=== PATIENT | male | born 1985 | race Caucasian/White ===

== ENCOUNTER 2018-01-30 20:17 | Inpatient (IN) | payer SELFPAY ==
[~2018-01-30] VITALS: Ht 167.6 cm; Wt 62.8 kg
[2018-01-30] MEDS ORDERED: SODIUM CHLORIDE 0.9% 1000ML 1,000 ML ONE (20:25)
[2018-01-30] MEDS ORDERED: ETOMIDATE 2 MG/ML 10 ML INJ IV ONE ×2 (20:31→21:15)
[2018-01-30] MEDS ORDERED: VECURONIUM BROMIDE FOR INJ 20 MG VIAL ONE (20:32)
[2018-01-30] MEDS ORDERED: SUCCINYLCHOLINE CHLORIDE 20 MG/ML 10ML VIAL ONE (20:32)
[2018-01-30] MEDS ORDERED: VECURONIUM BROMIDE FOR INJ 20 MG VIAL IV STA (20:44)
[2018-01-30] MEDS ORDERED: SODIUM CHLORIDE 0.9% 1000ML 1,000 ML IV STA (20:44)
[2018-01-30] MEDS ORDERED: SUCCINYLCHOLINE 200 MG/10 ML SYR IV STA (20:44)
[2018-01-30 21:03] LABS: BASOPHILS % 0.6 % (0.0-1.0); EOSINOPHILS # (AUTO) 0.1 (0.0-0.4); EOSINOPHILS % 1.5 % (0.0-6.0); HEMATOCRIT 42.3 % (38.2-49.6); HEMOGLOBIN 14.9 g/dL (14.0-18.0); LYMPHOCYTES # (AUTO) 2.3 (1.0-3.2); LYMPHOCYTES % 31.7 % (18.0-39.1); MEAN CORPUSCULAR HEMOGLOBIN 29.9 pg (28-32); MEAN CORPUSCULAR HGB CONC 35.2 g/dL (31-35); MEAN CORPUSCULAR VOLUME 84.9 fL (81-99); MONOCYTES # (AUTO) 0.6 (0.2-0.8); MONOCYTES % 8.1 % (4.4-11.3); NEUTROPHILS # (AUTO) 4.1 (2.1-6.9); NEUTROPHILS % 57.3 % (38.7-80.0); PLATELET COUNT 191 x10e3/uL (140-360); RED BLOOD COUNT 4.98 x10e6/uL (4.3-5.7)
[2018-01-30 21:13] LABS: INR 1.03; PROTHROMBIN TIME 12.7 seconds (11.9-14.5)
[2018-01-30 21:14] LABS: PARTIAL THROMBOPLASTIN TIME 25.2 seconds (23.8-35.5)
[2018-01-30] MEDS ORDERED: CHARCOAL/SORBITOL LIQD 25 GM/120 ML TUBE NG STA (21:17)
[2018-01-30 21:20] LABS: CLARITY,URINE CLEAR (CLEAR); COLOR,URINE YELLOW (YELLOW)
[2018-01-30 21:21] LABS: AMPHETAMINES SCREEN,URINE NEGATIVE (NEGATIVE); BENZODIAZEPINES SCREEN,URINE POSITIVE (NEGATIVE); BILIRUBIN,URINE NEGATIVE (NEGATIVE); KETONES,URINE NEGATIVE (NEGATIVE); LEUKOCYTE ESTERASE ,URINE NEGATIVE (NEGATIVE); NITRITE,URINE NEGATIVE (NEGATIVE); PHENCYCLIDINE SCREEN,URINE NEGATIVE (NEGATIVE); PROTEIN,URINE DIPSTICK NEGATIVE (NEGATIVE); URINE UROBILINOGEN 0.2 mg/dL (0.2 - 1)
[2018-01-30 21:22] LABS: ACETAMINOPHEN 108 ug/mL (10-30); AMYLASE 47 U/L (25-125); LIPASE 28 U/L (8-78); SALICYLATE < 5.0 mg/dL (0-30)
[2018-01-30 21:24] LABS: ALANINE AMINOTRANSFERASE 8 IU/L (0-55); ALBUMIN 4.1 g/dL (3.5-5.0); ALBUMIN/GLOBULIN RATIO 1.3 (0.8-2.0); ALKALINE PHOSPHATASE 51 IU/L (40-150); ANION GAP 20.4 mmol/L (8-16); BLOOD UREA NITROGEN 12 mg/dL (7-26); BUN/CREATININE RATIO 12 (6-25); CARBON DIOXIDE 24 mmol/L (22-29); CHLORIDE 108 mmol/L (98-107); CREATINE KINASE 43 IU/L (30-200); CREATININE, SERUM 0.99 mg/dL (0.72-1.25); EST GLOMERULAR FILTRATION RATE > 60 ML/MIN (60-); GLUCOSE 103 mg/dL (74-118); POTASSIUM 4.4 mmol/L (3.5-5.1); SODIUM 148 mmol/L (136-145)
[2018-01-30 21:28] LABS: RBC,URINE 0-5 /HPF (0-5); WBC,URINE (MAN) 0-5 /HPF (0-5)
[2018-01-30 21:29] LABS: MUCUS,URINE MODERATE (RARE)
--- NOTE | 2018-01-30 21:37 | Diagnostic Imaging Report ---
CHEST SINGLE (PORTABLE), 01/30/2018 8:57 PM Technique: CHEST SINGLE (PORTABLE) Comparison: None available. Clinical history: Altered mental status, intubated Findings: Mild cardiac opacity. Otherwise unremarkable appearance of the heart, mediastinum, lungs and pleural spaces. Impression: 1. Lines/tubes: ET tube 5.2 cm above the erasto. 2. Mild left basilar opacity, likely atelectasis. If there is concern for aspiration, consider follow-up upright PA and lateral. Signed by: Dr Soni Mcnamara MD on 01/30/2018 9:34 PM
--- NOTE | 2018-01-30 21:44 | Diagnostic Imaging Report ---
Exams: Head and cervical spine CTs without IV contrast History: Altered mental status Comparison studies: None Technique: Axial images were obtained from the brain and cervical spine. Coronal and sagittal images reconstructed from the axial data. Intravenous contrast: None Findings: Head CT: Scalp: No abnormalities. Bones: No fractures, blastic or lytic lesions. Extra-axial spaces: No masses. No fluid collections. Brain sulci: Appropriate for age. Ventricles: Normal in size and configuration. No hydrocephalus. Parenchyma: No abnormal densities. No masses, hemorrhage, acute or chronic vascular insults. Sellar/suprasellar region: No abnormalities. Craniocervical junction: The foramen magnum is patent. No Chiari one malformation. Cervical spine CT: Fractures: None. Soft tissues: No gross acute abnormalities. Atlantoaxial articulation: Intact. Alignment: Normal lordosis. No subluxations. Cervicomedullary junction: No abnormalities. The foramen magnum is patent. Vertebrae: No infection or neoplasm. Degenerative changes: Mildly degenerated C6-C7 disc with small disc bulge which indents the thecal sac but does not result in significant canal stenosis. Incidental findings: Small bilateral maxillary sinus alveolar recess retention cysts. Partially imaged ET tube (distal tubes lies outside imaged of view on this exam). Opacified nasopharynx by nonspecific secretions, likely related to intubation. IMPRESSION: Head CT: No intracranial abnormalities. Cervical spine CT: 1. No cervical spine fracture or subluxation. 2. Partially imaged ET tube. 3. Please note, cannot adequately evaluate ligament, spinal cord and or vascular abnormalities on the basis of this examination. Signed by: Dr. Keny Ward M.D. on 01/30/2018 9:41 PM
[2018-01-30] MEDS ORDERED: ACETYLCYSTEINE 200 MG/1 ML 10ML VIAL NG STA (22:15)
[2018-01-30 22:32] LABS: ABG PCO2 45 mmHg (41-51); ABG PH 7.34 (7.31-7.41); ABG PO2 494 mmHg (80-105)
[2018-01-30 22:33] LABS: ABG HCO3 24 mmol/L (23-28)
[2018-01-30] MEDS: SODIUM CHLORIDE 0.9% 1000ML 1,000 ML IV SCH (22:44)
[2018-01-30] MEDS ORDERED: MORPHINE SULFATE 2 MG/ML SYR IV PRN (23:00)
[2018-01-30] MEDS ORDERED: MULTIVITAMINS- 12 INJECTION 10 ML, FOLIC ACID MDV 5 MG, THIAMINE HCL INJ 100 MG in SODI... IV ONE (23:00)
[2018-01-30] MEDS ORDERED: ONDANSETRON HCL INJ 2 MG/ML VIAL IV PRN (23:00)
[2018-01-30 23:36] VITALS: BP 132/79
[2018-01-30 23:45] VITALS: BP 170/146
[2018-01-30] MEDS ORDERED: ACETYLCYSTEINE 200 MG/ML 4ML VIAL ONE ×2 (23:47→23:55)
[2018-01-30 23:55] VITALS: BP 170/146
[2018-01-30 23:58] LABS: CREATINE KINASE MB 0.3 ng/mL (0-5.0)
[2018-01-31] VITALS (54 sets, daily range): BP systolic 100–134; BP diastolic 62–91
[2018-01-31] MEDS ORDERED: VANCOMYCIN 1GM/NS 250 ML 250 ML IV STA (00:15)
[2018-01-31] MEDS ORDERED: CEFEPIME HCL 2 GM VIAL IV STA (00:15)
[2018-01-31] MEDS ORDERED: PROPOFOL IV EMULSION 10MG/ML 100 ML ONE (00:26)
[2018-01-31] MEDS ORDERED: PROPOFOL IV EMULSION 10MG/ML 100 ML IV PRN (00:45)
[2018-01-31] MEDS ORDERED: ACETYLCYSTEINE 200 MG/1 ML 10ML VIAL NG SCH (02:00)
[2018-01-31] MEDS ORDERED: ACETYLCYSTEINE 200 MG/ML 4ML VIAL ONE (02:03)
[2018-01-31] MEDS ORDERED: LORAZEPAM INJ 2 MG/ML VIAL IV PRN (04:15)
[2018-01-31 04:48] LABS: BASOPHILS % 0.3 % (0.0-1.0); EOSINOPHILS % 0.2 % (0.0-6.0); HEMOGLOBIN 12.6 g/dL (14.0-18.0); LYMPHOCYTES # (AUTO) 0.7 (1.0-3.2); LYMPHOCYTES % 11.3 % (18.0-39.1); MEAN CORPUSCULAR HEMOGLOBIN 29.6 pg (28-32); MEAN CORPUSCULAR HGB CONC 34.1 g/dL (31-35); MEAN CORPUSCULAR VOLUME 86.9 fL (81-99); MONOCYTES # (AUTO) 0.6 (0.2-0.8); MONOCYTES % 8.9 % (4.4-11.3); NEUTROPHILS # (AUTO) 4.9 (2.1-6.9); NEUTROPHILS % 78.7 % (38.7-80.0); PLATELET COUNT 135 x10e3/uL (140-360); RED BLOOD COUNT 4.26 x10e6/uL (4.3-5.7); RED CELL DISTRIBUTION WIDTH 13.2 % (11.7-14.4)
[2018-01-31] MEDS: SODIUM CHLORIDE 0.9% 1000ML 1,000 ML IV SCH ×3 (04:55→18:54)
[2018-01-31 05:08] LABS: INR 1.3; PROTHROMBIN TIME 15.2 seconds (11.9-14.5)
[2018-01-31 05:09] LABS: PARTIAL THROMBOPLASTIN TIME 24.8 seconds (23.8-35.5)
[2018-01-31 05:20] LABS: CREATINE KINASE MB 0.7 ng/mL (0-5.0)
[2018-01-31 05:46] LABS: ALANINE AMINOTRANSFERASE 8 IU/L (0-55); ALBUMIN 3.8 g/dL (3.5-5.0); ALBUMIN/GLOBULIN RATIO 1.6 (0.8-2.0); ALKALINE PHOSPHATASE 45 IU/L (40-150); ANION GAP 18.1 mmol/L (8-16); BLOOD UREA NITROGEN 10 mg/dL (7-26); BUN/CREATININE RATIO 13 (6-25); CARBON DIOXIDE 16 mmol/L (22-29); CHLORIDE 111 mmol/L (98-107); CREATININE, SERUM 0.79 mg/dL (0.72-1.25); EST GLOMERULAR FILTRATION RATE > 60 ML/MIN (60-); GLUCOSE 204 mg/dL (74-118); MAGNESIUM 1.7 MG/DL (1.3-2.1); SODIUM 142 mmol/L (136-145)
[2018-01-31 05:47] LABS: POTASSIUM 3.1 mmol/L (3.5-5.1)
[2018-01-31 05:48] LABS: CALCIUM 7.6 mg/dL (8.4-10.2)
--- NOTE | 2018-01-31 17:31 | Diagnostic Imaging Report ---
PROCEDURE: Frontal and lateral views of the chest. COMPARISON: Chest radiograph 01/30/2018 INDICATIONS: OVERDOSE, PNEUMONIA FINDINGS: Lines/tubes: Interval removal of endotracheal tube. Lungs: The lungs are well inflated and clear. There is no evidence of pneumonia or pulmonary edema. Pleura: There is no pleural effusion or pneumothorax. Heart and mediastinum: The heart and the mediastinum are normal. Bones: No acute bony abnormality. IMPRESSION: 1. No acute cardiopulmonary disease. 2. Interval removal of endotracheal tube. Dictated by: Ankur Anderson M.D. on 01/31/2018 at 17:35 Electronically approved by: Ankur Anderson M.D. on 01/31/2018 at 17:35
[2018-01-31] MEDS: IBUPROFEN 400 MG TAB PO PRN (22:25)
[2018-02-01] VITALS (24 sets, daily range): BP systolic 107–137; BP diastolic 72–98
[2018-02-01] MEDS: SODIUM CHLORIDE 0.9% 1000ML 1,000 ML IV SCH ×2 (02:35→07:35)
[2018-02-01 04:37] LABS: BASOPHILS % 0.3 % (0.0-1.0); EOSINOPHILS # (AUTO) 0.1 (0.0-0.4); EOSINOPHILS % 3.3 % (0.0-6.0); HEMATOCRIT 32.3 % (38.2-49.6); LYMPHOCYTES % 32.8 % (18.0-39.1); MEAN CORPUSCULAR HEMOGLOBIN 29.4 pg (28-32); MEAN CORPUSCULAR HGB CONC 34.1 g/dL (31-35); MEAN CORPUSCULAR VOLUME 86.4 fL (81-99); MONOCYTES # (AUTO) 0.3 (0.2-0.8); MONOCYTES % 9.7 % (4.4-11.3); NEUTROPHILS # (AUTO) 1.6 (2.1-6.9); NEUTROPHILS % 53.6 % (38.7-80.0); PLATELET COUNT 89 x10e3/uL (140-360); RED BLOOD COUNT 3.74 x10e6/uL (4.3-5.7); RED CELL DISTRIBUTION WIDTH 12.5 % (11.7-14.4)
[2018-02-01 04:58] LABS: ALANINE AMINOTRANSFERASE 8 IU/L (0-55); ALBUMIN 3.2 g/dL (3.5-5.0); ALBUMIN/GLOBULIN RATIO 1.5 (0.8-2.0); ALKALINE PHOSPHATASE 32 IU/L (40-150); ANION GAP 11.4 mmol/L (8-16); BLOOD UREA NITROGEN 8 mg/dL (7-26); BUN/CREATININE RATIO 11 (6-25); CALCIUM 8.5 mg/dL (8.4-10.2); CARBON DIOXIDE 23 mmol/L (22-29); CHLORIDE 107 mmol/L (98-107); CREATININE, SERUM 0.71 mg/dL (0.72-1.25); EST GLOMERULAR FILTRATION RATE > 60 ML/MIN (60-); GLUCOSE 100 mg/dL (74-118); POTASSIUM 3.4 mmol/L (3.5-5.1); SODIUM 138 mmol/L (136-145)
[2018-02-01 07:57] LABS: BASOPHILS % 0.6 % (0.0-1.0); EOSINOPHILS # (AUTO) 0.1 (0.0-0.4); EOSINOPHILS % 2.8 % (0.0-6.0); HEMATOCRIT 33.6 % (38.2-49.6); HEMOGLOBIN 11.6 g/dL (14.0-18.0); LYMPHOCYTES # (AUTO) 0.9 (1.0-3.2); LYMPHOCYTES % 26.8 % (18.0-39.1); MEAN CORPUSCULAR HEMOGLOBIN 29.8 pg (28-32); MEAN CORPUSCULAR HGB CONC 34.5 g/dL (31-35); MEAN CORPUSCULAR VOLUME 86.4 fL (81-99); MONOCYTES # (AUTO) 0.3 (0.2-0.8); NEUTROPHILS % 61.5 % (38.7-80.0); PLATELET COUNT 100 x10e3/uL (140-360); RED BLOOD COUNT 3.89 x10e6/uL (4.3-5.7); RED CELL DISTRIBUTION WIDTH 12.6 % (11.7-14.4)
[2018-02-01 08:34] LABS: HIV 1&2 AB SCREEN NON-REACTIVE (NONREACTIVE)
--- NOTE | 2018-02-01 09:11 | Consultation ---
DATE OF CONSULTATION: January 31, 2018 PSYCHIATRIC CONSULTATION REASON FOR CONSULTATION: Evaluate the patient's overdose. HISTORY OF PRESENT ILLNESS: The patient is a 32-year-old man admitted to the hospital for overdose and respiratory failure. Psychiatric consultation is called to evaluate the patient's mood and overdose. As per medical record, the patient has a history of narcotic addiction, depression, bipolar. Upon evaluation today, the patient is found to be in the ICU. He is alert, awake and oriented to situation. He is calm and cooperative. The patient admits to overdose of medications, but he denies it was a suicide attempt. He claims that he does not remember how many pills he took, but he admits to taking Ativan, Tylenol, and melatonin. The patient claimed he was altered with alcohol in his system while he was taking his medications. He claims that he was taking the medications to help him with sleep. He also reports that the Ativan belonged to his . The patient states after the overdose he told his that he took both pills. His called 911. Although he claims he did not overdose due to suicide attempt, but he admits to having many stressors recently, namely losing his job and having to move into his sister's place. He denies any depression at this time. He denies any suicide or homicidal ideation. He admits to having anxiety. Denies any hopelessness or helplessness. He denies any problem with sleep or appetite. He does not elicit paranoia or delusional thinking. The patient refuses to go to inpatient at this time. He claims that he does not need it, and he can do outpatient instead. He reports a history of bipolar and anxiety, and takes Lamictal, Latuda and Remeron for his mood, but not has been taking it for 1 week due to lack of financial ability to get the medications. Discussed with nursing staff who reports that the patient has been calm, and will most likely be transferred to the medical floor. He was intubated when he was admitted to the hospital, but he self-extubated. Upon review of his history, ER reported that the patient was found to be intoxicated. He presented with obtundation in the ER. He took acetaminophen of the bottle with quantity of 100 tabs. There were more than 50 tabs remaining? He also ingested alcohol (wine and unknown amount of Vodka). He had ingested 7 tabs of Ativan. He did not seek help after overdose. His or significant other reported that he drank a bottle of wine and unknown amount of Vodka during the day when she witnessed him taking 2 handfuls of medications around 1930 time. She called for help. PAST PSYCHIATRIC HISTORY: The patient reports a history of bipolar, depression and anxiety. He is taking medications for those. However, he has not been taking them for 1 week. He denies using drugs. He denies regularly drinking alcohol, but admits to having binge drinking. However, later he admits to drinking 1 day out of the week. He denies past suicide attempts. FAMILY HISTORY: His sister has bipolar. SOCIAL HISTORY: The patient lives with his . MENTAL STATUS EXAMINATION GENERAL: The patient is a middle-aged male who is alert, awake and oriented to situation. His mood is anxious. Psychomotor state is passive. He . He denies any suicide or homicidal ideation. He denies any hallucinations. Thought process is concrete. No delusional thinking. Insight and judgment are fair. Memory appears to be grossly intact. CURRENT MEDICATIONS: Sodium chloride, Ativan p.r.n. IV. CURRENT LABS: WBC 6.18, RBC 4.26, hemoglobin 12.6, hematocrit 37, and platelets 135,000. Sodium 142, potassium 3.1, chloride 111, CO2 15, BUN 10, creatinine 0.79, AST 14, ALT 8. Acetaminophen level on January 30, 2018, is 96. Earlier in the day, it was 108. Ethanol level 242.3. Positive for benzo. ASSESSMENT: Bipolar disorder, currently depressed, severe; anxiety disorder. PLAN: Consult MAT team for emergency jail as the patient refusing to go to inpatient psychiatry. Add Seroquel p.r.n. p.o. Add Haldol p.r.n. IM. No scheduled medications at this time. Recommend total abstinence from alcohol and drugs. Transfer to inpatient psychiatry once he is medically cleared. Thank you for this consultation. Supportive therapy. DICTATED BY GO CHU Job#: [id number] OK
[2018-02-01] MEDS: QUETIAPINE FUMARATE 25 MG TAB PO PRN (22:46)
[2018-02-02] VITALS (24 sets, daily range): BP systolic 98–132; BP diastolic 67–88
[2018-02-02 04:46] LABS: BASOPHILS % 0.6 % (0.0-1.0); EOSINOPHILS # (AUTO) 0.2 (0.0-0.4); EOSINOPHILS % 5.1 % (0.0-6.0); HEMATOCRIT 34.2 % (38.2-49.6); HEMOGLOBIN 11.8 g/dL (14.0-18.0); LYMPHOCYTES % 32.5 % (18.0-39.1); MEAN CORPUSCULAR HEMOGLOBIN 29.3 pg (28-32); MEAN CORPUSCULAR HGB CONC 34.5 g/dL (31-35); MEAN CORPUSCULAR VOLUME 84.9 fL (81-99); MONOCYTES # (AUTO) 0.3 (0.2-0.8); MONOCYTES % 10.2 % (4.4-11.3); NEUTROPHILS # (AUTO) 1.6 (2.1-6.9); NEUTROPHILS % 51.6 % (38.7-80.0); PLATELET COUNT 109 x10e3/uL (140-360); RED BLOOD COUNT 4.03 x10e6/uL (4.3-5.7); RED CELL DISTRIBUTION WIDTH 12.5 % (11.7-14.4)
[2018-02-02 05:07] LABS: ALANINE AMINOTRANSFERASE 8 IU/L (0-55); ALBUMIN 3.2 g/dL (3.5-5.0); ALBUMIN/GLOBULIN RATIO 1.2 (0.8-2.0); ALKALINE PHOSPHATASE 42 IU/L (40-150); ANION GAP 12.5 mmol/L (8-16); BILIRUBIN,DIRECT 0.1 mg/dL (0.0-0.5); BLOOD UREA NITROGEN 10 mg/dL (7-26); BUN/CREATININE RATIO 14 (6-25); CALCIUM 8.9 mg/dL (8.4-10.2); CARBON DIOXIDE 26 mmol/L (22-29); CHLORIDE 104 mmol/L (98-107); CREATININE, SERUM 0.72 mg/dL (0.72-1.25); EST GLOMERULAR FILTRATION RATE > 60 ML/MIN (60-); GLUCOSE 107 mg/dL (74-118); POTASSIUM 3.5 mmol/L (3.5-5.1); SODIUM 139 mmol/L (136-145)
[2018-02-02] MEDS ORDERED: VANCOMYCIN 1GM/NS 250 ML 250 ML ONE (10:58)
[2018-02-02] MEDS ORDERED: VANCOMYCIN 1GM/NS 250 ML 250 ML IV ONE (11:30)
--- NOTE | 2018-02-02 16:32 | Consultation ---
DATE OF CONSULTATION: February 02, 2018 INFECTIOUS DISEASE CONSULTATION REASON FOR CONSULTATION: Bacteremia. HISTORY OF PRESENT ILLNESS: This patient, who is a 32-year-old white male, denies any past medical history. He said he was drinking heavily and he took a whole bunch of pills. He does know why. He does not provide a reason. There is concern this was a suicide attempt. The patient was admitted. He is currently in the intensive care unit, but he is currently doing quite well. He has no complaints whatsoever. REVIEW OF SYSTEMS: HEENT: Negative. PULMONARY: Negative. CARDIAC: Negative. : Negative. GI: Negative. SKIN: There is no rash. JOINTS: Negative. NEUROLOGIC: He denies any seizure activity or focal weakness. LABORATORY DATA: Reviewed. White count was 3.14. Blood culture 1 out of 2 showed gram-positive cocci. PHYSICAL EXAMINATION: GENERAL: He is currently alert, oriented, does not seem to be in acute distress. VITALS: Stable. Currently afebrile. HEENT: He is normocephalic. He does not appear icteric. NECK: Supple. CHEST: Clear. HEART: S1 and S2. No S3, no S4, no murmur. ABDOMEN: Soft. Bowel sounds present. No tenderness. EXTREMITIES: No edema. IMPRESSION: 1. Bacteremia in 1 set out of 2, probably a contamination but will put him on vancomycin for now. Plan. 2. Alcoholism. 3. Drug overdose, concern of suicide. Psych already been evaluating the patient. 4. His human immunodeficiency virus is negative. Will follow with you. Job#: [id number] EV
[2018-02-02] MEDS: QUETIAPINE FUMARATE 25 MG TAB PO PRN (21:15)
[2018-02-03] VITALS (13 sets, daily range): BP systolic 106–125; BP diastolic 67–86
[2018-02-03 05:35] LABS: BASOPHILS % 0.6 % (0.0-1.0); EOSINOPHILS # (AUTO) 0.2 (0.0-0.4); EOSINOPHILS % 4.3 % (0.0-6.0); HEMATOCRIT 35.1 % (38.2-49.6); HEMOGLOBIN 12.4 g/dL (14.0-18.0); LYMPHOCYTES # (AUTO) 1.2 (1.0-3.2); MEAN CORPUSCULAR HEMOGLOBIN 29.7 pg (28-32); MEAN CORPUSCULAR HGB CONC 35.3 g/dL (31-35); MEAN CORPUSCULAR VOLUME 84.2 fL (81-99); MONOCYTES # (AUTO) 0.3 (0.2-0.8); MONOCYTES % 7.5 % (4.4-11.3); NEUTROPHILS # (AUTO) 1.9 (2.1-6.9); NEUTROPHILS % 53.7 % (38.7-80.0); PLATELET COUNT 114 x10e3/uL (140-360); RED BLOOD COUNT 4.17 x10e6/uL (4.3-5.7); RED CELL DISTRIBUTION WIDTH 12.4 % (11.7-14.4)
[2018-02-03 05:59] LABS: ALANINE AMINOTRANSFERASE 10 IU/L (0-55); ALBUMIN 3.4 g/dL (3.5-5.0); ALBUMIN/GLOBULIN RATIO 1.3 (0.8-2.0); ALKALINE PHOSPHATASE 41 IU/L (40-150); ANION GAP 13.8 mmol/L (8-16); BLOOD UREA NITROGEN 13 mg/dL (7-26); BUN/CREATININE RATIO 18 (6-25); CALCIUM 9.3 mg/dL (8.4-10.2); CARBON DIOXIDE 25 mmol/L (22-29); CHLORIDE 105 mmol/L (98-107); CREATININE, SERUM 0.71 mg/dL (0.72-1.25); EST GLOMERULAR FILTRATION RATE > 60 ML/MIN (60-); GLUCOSE 102 mg/dL (74-118); POTASSIUM 3.8 mmol/L (3.5-5.1); SODIUM 140 mmol/L (136-145)
[2018-02-03] MEDS: QUETIAPINE FUMARATE 25 MG TAB PO PRN ×2 (11:29→20:21)
[2018-02-03] MEDS: VANCOMYCIN 1GM/NS 250 ML 250 ML IV SCH ×3 (11:29→23:30)
[2018-02-03] MEDS: HALOPERIDOL LACTATE 5 MG/ML VIAL IM PRN ×2 (13:20→19:28)
[2018-02-03] MEDS: QUETIAPINE FUMARATE 25 MG TAB PO SCH (21:00)
[2018-02-03] MEDS: IBUPROFEN 400 MG TAB PO PRN (22:00)
[2018-02-04] VITALS (7 sets, daily range): BP systolic 105–128; BP diastolic 64–84
[2018-02-04 05:25] LABS: BASOPHILS % 0.8 % (0.0-1.0); EOSINOPHILS # (AUTO) 0.2 (0.0-0.4); EOSINOPHILS % 4.7 % (0.0-6.0); HEMOGLOBIN 11.8 g/dL (14.0-18.0); LYMPHOCYTES # (AUTO) 1.1 (1.0-3.2); LYMPHOCYTES % 30.2 % (18.0-39.1); MEAN CORPUSCULAR HEMOGLOBIN 29.9 pg (28-32); MEAN CORPUSCULAR HGB CONC 34.7 g/dL (31-35); MEAN CORPUSCULAR VOLUME 86.3 fL (81-99); MONOCYTES # (AUTO) 0.3 (0.2-0.8); MONOCYTES % 7.5 % (4.4-11.3); NEUTROPHILS % 56.2 % (38.7-80.0); PLATELET COUNT 118 x10e3/uL (140-360); RED BLOOD COUNT 3.94 x10e6/uL (4.3-5.7); RED CELL DISTRIBUTION WIDTH 12.3 % (11.7-14.4)
[2018-02-04 05:44] LABS: ALANINE AMINOTRANSFERASE 12 IU/L (0-55); ALBUMIN 3.6 g/dL (3.5-5.0); ALBUMIN/GLOBULIN RATIO 1.4 (0.8-2.0); ALKALINE PHOSPHATASE 34 IU/L (40-150); ANION GAP 14.4 mmol/L (8-16); BLOOD UREA NITROGEN 17 mg/dL (7-26); BUN/CREATININE RATIO 22 (6-25); CALCIUM 9.2 mg/dL (8.4-10.2); CARBON DIOXIDE 25 mmol/L (22-29); CHLORIDE 104 mmol/L (98-107); CREATININE, SERUM 0.79 mg/dL (0.72-1.25); EST GLOMERULAR FILTRATION RATE > 60 ML/MIN (60-); GLUCOSE 159 mg/dL (74-118); POTASSIUM 3.4 mmol/L (3.5-5.1); SODIUM 140 mmol/L (136-145)
[2018-02-04] MEDS: QUETIAPINE FUMARATE 25 MG TAB PO PRN ×2 (09:25→19:17)
--- NOTE | 2018-02-04 10:08 | Progress Note ---
DATE: February 03, 2018 PSYCHIATRIC PROGRESS NOTE The patient was found to be in the room. He is alert, awake, and oriented to situation. He reported to Dr. Wooten that he does not remember events leading up to his hospitalization, although when we first saw him, he admitted to overdose on medications. He is still evasive. He is getting p.r.n. medications. He denies any suicidal or homicidal ideation. He denies any hallucination. He denies any side effects from the medications. The patient is waiting for transfer to . ASSESSMENT: Bipolar disorder depressed and anxiety disorder. PLAN 1. Transfer the patient to inpatient psychiatry once he is medically cleared. 2. Continue with Seroquel p.r.n. p.o. 3. Continue Haldol p.r.n. IM. 4. Add Seroquel 50 mg p.o. each bedtime. 5. Supportive therapy. 6. Recommend total abstinence from alcohol and drugs. Thank you for this consultation. Dictated by: GO Mills Job#: [id number]
[2018-02-04] MEDS ORDERED: POTASSIUM CHLORIDE 10 MEQ TABCR PO ONE (12:00)
[2018-02-04] MEDS ORDERED: LORAZEPAM 0.5 MG TAB PO PRN (16:00)
[2018-02-04] MEDS: LORAZEPAM INJ 2 MG/ML VIAL IV PRN (20:52)
[2018-02-04] MEDS: BETAMETHASONE/CLOTRIMAZOLE CR 15 GM TUBE TOP SCH (20:52)
[2018-02-04] MEDS ORDERED: BETAMETHASONE/CLOTRIMAZOLE CR 15 GM TUBE TOP SCH (21:00)
[2018-02-04] MEDS: QUETIAPINE FUMARATE 25 MG TAB PO SCH (21:00)
[2018-02-05] VITALS: BP 105/67
[2018-02-05 04:00] VITALS: BP 111/76
[2018-02-05 05:03] LABS: BASOPHILS % 0.9 % (0.0-1.0); EOSINOPHILS # (AUTO) 0.1 (0.0-0.4); EOSINOPHILS % 3.5 % (0.0-6.0); HEMATOCRIT 33.7 % (38.2-49.6); HEMOGLOBIN 11.9 g/dL (14.0-18.0); LYMPHOCYTES # (AUTO) 1.2 (1.0-3.2); LYMPHOCYTES % 34.8 % (18.0-39.1); MEAN CORPUSCULAR HEMOGLOBIN 29.9 pg (28-32); MEAN CORPUSCULAR HGB CONC 35.3 g/dL (31-35); MEAN CORPUSCULAR VOLUME 84.7 fL (81-99); MONOCYTES # (AUTO) 0.3 (0.2-0.8); MONOCYTES % 8.4 % (4.4-11.3); NEUTROPHILS # (AUTO) 1.8 (2.1-6.9); NEUTROPHILS % 51.8 % (38.7-80.0); PLATELET COUNT 129 x10e3/uL (140-360); RED BLOOD COUNT 3.98 x10e6/uL (4.3-5.7); RED CELL DISTRIBUTION WIDTH 12.3 % (11.7-14.4)
[2018-02-05 05:35] LABS: ALANINE AMINOTRANSFERASE 12 IU/L (0-55); ALBUMIN 3.4 g/dL (3.5-5.0); ALBUMIN/GLOBULIN RATIO 1.3 (0.8-2.0); ALKALINE PHOSPHATASE 36 IU/L (40-150); BLOOD UREA NITROGEN 18 mg/dL (7-26); BUN/CREATININE RATIO 24 (6-25); CALCIUM 8.9 mg/dL (8.4-10.2); CARBON DIOXIDE 23 mmol/L (22-29); CHLORIDE 106 mmol/L (98-107); CREATININE, SERUM 0.76 mg/dL (0.72-1.25); EST GLOMERULAR FILTRATION RATE > 60 ML/MIN (60-); GLUCOSE 98 mg/dL (74-118); SODIUM 140 mmol/L (136-145)
[2018-02-05 08:00] VITALS: BP 112/75
[2018-02-05] MEDS: LORAZEPAM INJ 2 MG/ML VIAL IV PRN (09:27)
[2018-02-05] MEDS: QUETIAPINE FUMARATE 25 MG TAB PO PRN (09:27)
[2018-02-05] MEDS: BETAMETHASONE/CLOTRIMAZOLE CR 15 GM TUBE TOP SCH (09:27)
[2018-02-05 11:48] VITALS: BP 112/75
== END 2018-02-05 12:23 | disposition other institution (70) | DRG 917 ==
LOC: ER 20:17 → ICU 22:47
PROVIDERS: ADMIT Family Medicine; ATTEND Family Medicine
DX: T39.1X2A Poisoning by 4-Aminophenol derivatives, intentional self-harm, initial encounter (principal); J96.01 Acute respiratory failure with hypoxia; F31.4 Bipolar disorder, current episode depressed, severe, without psychotic features; T42.4X2A Poisoning by benzodiazepines, intentional self-harm, initial encounter; T51.0X2A Toxic effect of ethanol, intentional self-harm, initial encounter; Y92.9 Unspecified place or not applicable; F10.20 Alcohol dependence, uncomplicated; Y90.8 Blood alcohol level of 240 mg/100 ml or more
CPT/HCPCS: 31500; 36415; 36600; 51700; 70450; 71045; 71046; 72125; 80053; 80076; 80202; 80307; 80320; 80329; 81001; 82150; 82550; 82553; 82805; 83605; 83690; 83735; 84484; 85025; 85610; 85730; 86803; 87040; 87071; 87086; 87205; 87390; 93005; 94002; 96374; 96376; 99285; G0433; G0435; J0330; J0692; J1630; J2060; J3370; J3411; J7030